=== PATIENT | female | born 1995 | race Asian ===

== ENCOUNTER 2020-03-17 14:16 | Emergency (ER) | payer SELFPAY ==
[2020-03-17 14:47] VITALS: BP 120/79; PULSE 62; RESP 18; TEMP 36.3; O2SAT 100; BMI 27.3
[2020-03-17 15:44] LABS: Basophils # 0.1 10^3/uL (0.0-0.1); Basophils % 0.3 %; Eosinophils # 0.2 10^3/uL (0.0-0.8); Eosinophils % 0.8 %; Hematocrit 43.2 % (37.0-47.0); Hemoglobin 14.3 g/dL (11.5-15.3); Lymphocytes # 1.9 10^3/uL (0.8-4.8); Lymphocytes % 8.3 %; Mean Corpuscular HGB Conc 33.1 g/dL (30.0-36.0); Mean Corpuscular Hemoglobin 31.2 pg (28.0-34.0); Mean Corpuscular Volume 94.1 fL (81-99); Mean Platelet Volume 11.7 fL (7.4-10.4); Monocytes # 1.6 10^3/uL (0.2-0.9); Neutrophils # 18.8 10^3/uL (1.8-7.7); Neutrophils % 83.1 %; Nucleated Red Blood Cells % 0 %; Platelet Count 216 10^3/cmm (130-400); Red Blood Count 4.59 10^6/uL (4.1-5.3); Red Cell Distribution Width 12.1 % (12.1-15.1); White Blood Count 22.7 10^3/uL (4.0-10.0)
[2020-03-17 15:56] LABS: Bilirubin Urine Neg (NEGATIVE); Blood Urine Neg (Negative); Glucose Urine UA Norm (Normal); Ketones Urine 1+ (Negative); Leukocyte Esterase Urine Negative (Negative); Nitrate Urine Negative (Negative); Protein Urine Neg (Negative); Urine Appearance Clear (CLEAR); Urine Color Yellow (Yellow); Urobilinogen Urine Norm (Negative); pH Urine 6.5 (5-7)
[2020-03-17 15:57] LABS: Alanine Aminotransferase 11 U/L (0-33); Albumin Level 4.5 g/dL (3.5-5.2); Alkaline Phosphatase 50 IU/L (35-105); Aspartate Amino Transferase 19 U/L (0-32); Blood Urea Nitrogen 13 mg/dL (6-20); Calcium 9.1 mg/dL (8.5-10.5); Carbon Dioxide 23 mmol/L (22-29); Chloride 102 mmol/L (98-107); Globulin 2.9 g/dL (1.3-4.6); Glucose 93 mg/dL (65-115); Lipase 23 U/L (13-60); Osmolality Calculated 278 mOsm/kg (285-295); Sodium 136 mmol/L (136-145); Total Bilirubin 0.8 mg/dL (0.15-1.2); Total Protein 7.4 g/dL (6.6-8.7)
[2020-03-17 15:59] LABS: HCG, Serum Qual Negative (Negative)
[2020-03-17 16:04] LABS: Add Urine Culture? No; Bacteria Urine 1+; Mucus Urine 1+; Squamous Epithelial Cell Urine 15-25 (0-5)
== END 2020-03-17 16:48 | disposition left against medical advice (07) ==
LOC: ER 14:34
PROVIDERS: Emergency Medicine; Emergency Provider Emergency Medicine
DX: Z53.21 Procedure and treatment not carried out due to patient leaving prior to being seen by health care provider (principal)
CPT/HCPCS: 36415; 80053; 81001; 83690; 84703; 85025; 99281

== ENCOUNTER → 2020-09-18 11:30 | Outpatient (BNVA) | payer OTHER, SELFPAY | PROVIDERS: Visit Provider Nurse Practitioner Family | DX: Z20.828 Contact with and (suspected) exposure to other viral communicable diseases (principal) | CPT/HCPCS: 87635 ==

== ENCOUNTER → 2021-07-04 14:55 | Outpatient (BNVA) | payer OTHER, SELFPAY | PROVIDERS: Visit Provider Nurse Practitioner Family | DX: Z20.822 Contact with and (suspected) exposure to COVID-19 (principal) | CPT/HCPCS: 87635 ==

== ENCOUNTER 2021-10-12 08:40 | Emergency (ER) | payer SELFPAY ==
[2021-10-12 08:46] VITALS: BP 125/80; PULSE 91; RESP 15; TEMP 37.3; O2SAT 100; BMI 31.1
--- NOTE | 2021-10-12 08:59 | ED_ITS ---
HPI - COVID General: Chief Complaint: COVID symptoms Stated Complaint: covid sx: cough, sob, exposure, chilling Time Seen by Provider: 10/12/21 08:42 Triage information: Has fever, cough or shortness of breath . Exposure to COVID + person last 14 days History of Present Illness: HPI Narrative: 26-year-old female began having cough sore throat a little bit short of breath overnight myalgias subjective fever. No vomiting or diarrhea known Covid exposure last week. No vomiting no diarrhea no productive cough. Patient does not have a history of asthma or diabetes or hypertension. MD complaint: has COVID symptoms Prior covid testing: no COVID 19 common symptoms: positive fever(s), chills, cough, non-productive cough, dyspnea, fatigue, body aches, headache(s), throat pain, nasal congestion and nausea; negative loss of sense of smell and/or taste, vomiting or diarrhea COVID 19 other sytmptoms: negative chest pain or requiring oxygen Onset (ago): hour(s) Severity: mild Pertinent comorbid conditions: obesity Treatment prior to arrival: none COVID Results: SARS-CoV-2 RNA (RT-PCR) Not detected (NOT DETECTED) 07/04/21 14:55 07/04/21 Review of Systems Const: Reports: fever(s), chills, body aches and fatigue ENMT: Reports: throat pain and nasal congestion Card: Denies: chest pain, edema, dyspnea on exertion or orthopnea Resp: Reports: dyspnea and non-productive cough GI: Reports: nausea; Denies: vomiting or diarrhea : Denies: flank pain, difficulty voiding, dysuria, urinary frequency or urinary urgency Skin/Breast: Denies: rash or pruritus Neuro: Reports: headache(s) PFS ED PFSH: Social History Smoking and tobacco status: current every day smoker Female Reproductive History: Date of last menstrual period: 09/11/21 Physical Exam Const: COMMON NORMALS: no acute distress GENERAL APPEARANCE: cooperative and comfortable ORIENTATION/CONSCIOUSNESS: Yes awake, Yes oriented to person, Yes oriented to place and Yes oriented to time HENMT: COMMON NORMALS: normocephalic, atraumatic and hearing grossly normal bilaterally HEAD & SCALP: normocephalic and atraumatic Neck/C-Spine: COMMON NORMALS: no JVD Resp: COMMON NORMALS: normal respiratory effort, No retractions, No use of accessory muscles and clear to auscultation bilaterally AUSCULTATION: clear to auscultation bilaterally Cardio: COMMON NORMALS: no JVD, regular rate, regular rhythm and No murmurs present (Cardio) RATE: regular rate RHYTHM: regular rhythm GI: PALPATION: Yes Tenderness to palpation present (GI) and Yes Guarding due to palpation present (GI) Extremity: COMMON NORMALS: normal to inspection, capillary refill normal, no clubbing, cyanosis or edema, no calf tenderness and no pedal edema Neuro: SENSORIUM/ORIENTATION: Yes oriented to person, Yes oriented to place and Yes oriented to time Skin: COMMON NORMALS: no rashes or lesions noted GENERAL SKIN EXAM: no rashes or lesions noted Course Vital Signs: Vital signs: Vital Signs Temperature 99.1 F 10/12/21 08:46 Pulse Rate 91 10/12/21 08:46 Respiratory Rate 15 10/12/21 08:46 Blood Pressure 125/80 10/12/21 08:46 Pulse Oximetry 100 10/12/21 08:46 MDM - COVID MDM Narrative: Medical decision making narrative: Exam normal vital signs stable. Patient does have a low-grade fever. Swab for PCR for Covid. Will contact with results when available at this point there is no other int erventions. If she is Covid positive we can offer monoclonal antibodies based on her BMI. Lab Data: Labs: Lab Results 10/12/21 09:11 Coronavirus 229E ( PCR) Not detected (NOT DETECT) SARS-CoV-2 (PCR) Detected A (NOT DETECT) COVID Results: SARS-CoV-2 RNA (RT-PCR) Not detected (NOT DETECTED) 07/04/21 14:55 07/04/21 Discharge Plan Discharge Patient Disposition: Home Clinical Impression: Suspected 2019-nCoV infection Condition: Stable Prescriptions: No Action No Known Home Medications RF: 0 Discharge Orders: Discharge ED (Routine); Ordered 10/12/21 Ordered By: Jean Slaughter Referrals: Olu Link MD [Primary Care Provider] - Patient Instructions: Opioid Safety Activity Restrictions/Additional Instructions: Recommend that you maintain self quarantine until the results are returned. We will call you when we get the results. If they are positive you would potentially be a candidate for monoclonal antibodies. Health department will also call you if you are positive with further recommendations. Coding Level of Care Code ED Transportation Supervisor for Gerardo Fwd Exam Comprehensive
[2021-10-12 11:11] LABS: Adenovirus Not Detected (NOT DETECT); Chlamydia Pneumoniae Not Detected (NOT DETECT); Coronavirus 229E,HKU1,NL63,OC4 Not Detected (NOT DETECT); Human Metapneumovirus Not Detected (NOT DETECT); Human Rhinovirus/Enterovirus Not Detected (NOT DETECT); Influenza A Not Detected (NOT DETECT); Influenza A H1 Not Detected (NOT DETECT); Influenza A H1-2009 Not Detected (NOT DETECT); Influenza A H3 Not Detected (NOT DETECT); Influenza B Not Detected (NOT DETECT); Mycoplasma Pneumoniae Not Detected (NOT DETECT); Parainfluenza Virus Type 1 Not Detected (NOT DETECT); Parainfluenza Virus Type 2 Not Detected (NOT DETECT); Parainfluenza Virus Type 3 Not Detected (NOT DETECT); Parainfluenza Virus Type 4 Not Detected (NOT DETECT); Respiratory Syncytial Virus A Not Detected (NOT DETECT); Respiratory Syncytial Virus B Not Detected (NOT DETECT); SARS-COV-2 Detected (NOT DETECT)
--- NOTE | 2021-10-15 15:37 | DCPLANNER ---
clinical support manager had message to schedule an outpatient MCA infusion. clinical support manager faxed signed order to centralized scheduling, who will call patient with appointment information.
== END 2021-10-12 09:15 | disposition home or self-care (01) ==
PROVIDERS: Emergency Provider Family Medicine; PCP Family Medicine
DX: U07.1 COVID-19 (principal); F17.210 Nicotine dependence, cigarettes, uncomplicated
CPT/HCPCS: 87635; 99281

== ENCOUNTER 2021-10-16 10:15 | Outpatient (CLI) | payer SELFPAY ==
[2021-10-16 11:00] VITALS: BP 101/71; PULSE 75; RESP 17; TEMP 36.7; O2SAT 97; BMI 33.0
[2021-10-16 12:09] VITALS: BP 111/72; PULSE 62; RESP 17; TEMP 36.7; O2SAT 97
[2021-10-16 12:56] VITALS: BP 125/78; PULSE 66; RESP 17; TEMP 36.7; O2SAT 98
[2021-10-16 12:59] VITALS: BP 125/78; PULSE 66; RESP 17; TEMP 36.7; O2SAT 98
== END 2021-10-16 10:16 | disposition home or self-care (01) ==
LOC: OPS 10:20
PROVIDERS: PCP Family Medicine; Visit Provider Family Medicine
DX: U07.1 COVID-19 (principal)
CPT/HCPCS: 96365

== ENCOUNTER 2023-06-01 05:52 | Observation (INO) | payer MEDICAID, SELFPAY ==
[2023-06-01] VITALS (18 sets, daily range): BP systolic 114–143; BP diastolic 63–111; PULSE 68–98; RESP 16–21; TEMP 36.7–36.9; O2SAT 93–100; BMI 34.9
[2023-06-01 06:04] LABS: Basophils % 0.2 %; Eosinophils # 0.2 10^3/uL (0.0-0.8); Eosinophils % 0.8 %; Hematocrit 35.8 % (37.0-47.0); Hemoglobin 12.3 g/dL (11.5-15.3); Lymphocytes # 2.2 10^3/uL (0.8-4.8); Lymphocytes % 11.1 %; Mean Corpuscular HGB Conc 34.4 g/dL (30.0-36.0); Mean Corpuscular Hemoglobin 31.4 pg (28.0-34.0); Mean Corpuscular Volume 91.3 fl (81-99); Mean Platelet Volume 10.6 fL (7.4-10.4); Monocytes # 1.5 10^3/uL (0.2-0.9); Monocytes % 7.4 %; Neutrophils # 16.01 10^3/uL (1.8-7.7); Nucleated Red Blood Cells % 0 %; Platelet Count 212 10^3/cmm (130-400); Red Blood Count 3.92 10^6/uL (4.1-5.3); Red Cell Distribution Width 12.3 % (12.1-15.1)
[2023-06-01 06:36] LABS: Add Urine Microscopic? YES; Bilirubin Urine Neg (Negative); Blood Urine Neg (Negative); Glucose Urine UA Norm (Normal); Ketones Urine 1+ (Negative); Leukocyte Esterase Urine Negative (Negative); Nitrate Urine Negative (Negative); Protein Urine Trace (Negative); Urine Appearance Hazy (CLEAR); Urine Color Dark Yellow (Yellow); Urobilinogen Urine Norm (Negative); pH Urine 7 (5-7)
[2023-06-01 06:37] LABS: Add Urine Culture? No; Bacteria Urine 1+ /hpf; Mucus Urine 1+ /hpf; RBC Urine 0-4 /hpf (0-2); Squamous Epithelial Cell Urine 15-25 /hpf (0-5); WBC Urine 0-4 /hpf (0-5)
[2023-06-01 06:50] LABS: Alanine Aminotransferase 15 U/L (0-33); Albumin Level 3.9 g/dL (3.5-5.2); Alkaline Phosphatase 46 U/L (35-105); Anion Gap 16.5 (5-19); Aspartate Amino Transferase 15 U/L (0-32); Blood Urea Nitrogen 6 mg/dL (6-20); C Reactive Protein 5.5 mg/L (0.0-4.9); Calcium 8.7 mg/dL (8.5-10.5); Carbon Dioxide 19 mmol/L (22-29); Chloride 104 mmol/L (98-107); Globulin 2.9 g/dL (1.3-4.6); Glomerular Filtration Rate 190.1 mL/min (90-130); Glucose 100 mg/dL (65-115); Lipase 25 U/L (13-60); Osmolality Calculated 280 mOsm/kg (285-295); Potassium 3.5 mmol/L (3.5-5.1); Sodium 136 mmol/L (136-145); Total Bilirubin 0.4 mg/dL (0.15-1.2); Total Protein 6.8 g/dL (6.6-8.7)
--- NOTE | 2023-06-01 06:58 | US_ITS ---
WS: [id number] ULTRASOUND ABDOMEN LIMITED CLINICAL INFORMATION: abd pain COMPARISON: None. FINDINGS: Liver Size: Normal. Craniocaudal length: 15.5 cm. Echogenicity: Normal. Surface nodularity: None. Mass (size and location): None. Bile ducts Intrahepatic ducts: Normal. Common bile duct diameter: 0.4 cm. Gallbladder Normal. Gallstones: None. Gallbladder sludge: None. Gallbladder wall thickening: None. Pericholecystic fluid: None. Sonographic Hughes sign: Absent. Pancreas Normal as visualized. Right kidney: Normal. Hydronephrosis: None. Size: 12.0 cm x 5.2 cm x 5.2 cm. Abdominal aorta and IVC Visualized portions are normal. Ascites: None. IMPRESSION: 1. Normal liver. 2. Normal gallbladder. 3. Normal common bile duct. 4. No hydronephrosis in the RIGHT kidney.
--- NOTE | 2023-06-01 06:58 | US_ITS ---
WS: [id number] ULTRASOUND OB LIMITED TECHNIQUE: Limited ultrasound examination of the fetus. G2, P1 CLINICAL INFORMATION: abd preg - gestational age unknown LMP 01/24/2023 COMPARISON: None. FINDINGS: Closed cervix measuring 4.3 cm Single interuterine gestation. presentation is breech Placental location is posterior. Placenta grade: 0. heart rate 171 BPM. BELLO 12.2 cm Anatomy: BDP: 3.3 cm = 16w2d HC: 12.6 cm = 16w2d AC: 10.2 cm = 16w1d FEMUR LENGTH: 2.1 cm = 16w1d Estimated weight: 147 g; EGA by ultrasound: 16w2d JANNIE by ultrasound: 11/14/2023 IMPRESSION: 1. Single live intrauterine gestation 16 weeks 1 day. 2. Normal cardiac activity. 3. Normal amniotic fluid volume.
[2023-06-01] MEDS: sodium chloride 0.9% 1,000 ML 999 ML IV ×2 (07:03→08:09)
--- NOTE | 2023-06-01 07:09 | ED_ITS ---
HPI - Abdominal Pain General: Chief Complaint: Abdominal Pain Stated Complaint: ABD Pain Time Seen by Provider: 06/01/23 06:03 Source: patient Mode of arrival: ambulatory History of Present Illness: 28-year-old female presents emergency room complaining of abdominal pain that began last night. Comes and goes in waves is rather diffuse. Patient states she is her last normal menstrual period was in February she is uncertain of how far along she is. No previous abdominal surgeries. No vaginal bleeding or discharge. No flank pain. No cough or shortness of breath. No vomiting no diarrhea. No fever. MD elicited complaint: abdominal pain Pertinent past history: other (Currently ) Onset (ago): day(s) (1) Pain Consistency: constant Location: Diffuse Severity: moderate Quality: cramping Exacerbating factors: nothing Relieving factors: nothing Associated Symptoms: Reports GI cramping and nausea; Denies anorexia, belching, bloating, change in bowel habits, change in stool character, chills, coffee ground emesis, constipation, diarrhea, dyspepsia, dysuria, excessive flatus, fever(s), heartburn, hematochezia, hematuria, jennie temesis, fecal incontinence, loose stools, melena, poor appetite, syncope and vomiting Related Data: Date of Last Menstrual Period: 02/10/23 Patient : Yes Review of Systems Const: Denies: fever(s) or chills ENMT: Denies: throat pain, ear or mastoid pain, nasal discharge or nasal congestion Card: Denies: chest pain, palpitations, edema, swelling of feet/ankles or syncope Resp: Denies: dyspnea, productive cough or non-productive cough GI: Reports: abdominal pain, nausea and GI cramping; Denies: vomiting, hematemesis, coffee ground emesis, heartburn, diarrhea, constipation, bloating, belching, excessive flatus, fecal incontinence, change in bowel habits, change in stool character, hematochezia or melena : Denies: dysuria, urinary frequency, urinary urgency or hematuria Skin/Breast: Denies: rash or pruritus PFSH ED PFSH: Social History Smoking and tobacco status: current every day smoker Female Reproductive History: Date of last menstrual period: 02/10/23 : 2 Physical Exam Const: GENERAL APPEARANCE: cooperative and comfortable ORIENTATION/CONS CIOUSNESS: Yes awake, Yes oriented to person, Yes oriented to place and Yes oriented to time HENMT: COMMON NORMALS: normocephalic, atraumatic and hearing grossly normal bilaterally HEAD & SCALP: normocephalic and atraumatic Resp: COMMON NORMALS: normal respiratory effort, No retractions, No use of accessory muscles and clear to auscultation bilaterally AUSCULTATION: clear to auscultation bilaterally Cardio: COMMON NORMALS: regular rate, regular rhythm and No murmurs present (Cardio) RATE: regular rate RHYTHM: regular rhythm GI: COMMON NORMALS: Soft to palpation and No hepatosplenomegaly present AUSCULTATION: Yes normoactive bowel sounds PALPATION: Yes Soft to palpation, No Tenderness to palpation present (GI), No Guarding due to palpation present (GI) and Yes No hepatosplenomegaly present Extremity: COMMON NORMALS: normal to inspection, capillary refill normal, no clubbing, cyanosis or edema, no calf tenderness and no pedal edema Neuro: SENSORIUM/ORIENTATION: Yes oriented to person, Yes oriented to place and Yes oriented to time Skin: COMMON NORMALS: no rashes or lesions noted GENERAL SKIN EXAM: no rashes or lesions noted Course Vital Signs: Vital signs: Vital Signs Temperature 98.5 F 06/01/23 05:55 Pulse Rate 78 06/01/23 10:00 Respiratory Rate 16 06/01/23 13:59 Blood Pressure 132/86 06/01/23 10:00 Pulse Oximetry 98 06/01/23 13:59 Oxygen Delivery Me thod Room Air 06/01/23 05:55 MDM - Abdominal Pain Medical Decision Making Patient monitored for a long period of time in the emergency room when she first arrived she was rolling around on the bed thrashing around moving trying to find a comfortable position after taking her history she seemed more to be hyperemesis cannabinoid although she did complain of some lower abdominal pain initially thought this may just be cramping from her . We gave her IV fluids antiemetics she did not really have rest full resolution of her symptoms after Zofran and fluids we gave her more fluids and offered her promethazine she initially declined. Repeat exam several times through this. She developed more specific right lower quadrant pain over time eventually concerning enough in conjunction with a white count of 20,000 we decided to go ahead and do further imaging and discussed with radiology and with Dr. Montes De Oca who is on-call for LANDSCAPE H[employer]ICULT[employer] INSTRUCTOR. Dr. Montes De Oca recommends CT of the abdomen to further evaluate. Reviewed previous ultrasounds tach and the radiologist not believe we could adequately visualize her appendix via ultrasound. CT did show acute appendicitis she is given Zosyn Dr. Mary was consulted as well as Dr. Tavon Mary is planning to take the patient to the operating room Dr. Montes De Oca will follow for [employer]ANDSC[employer] H[employer]IC[employer] INSTRUCTOR care as needed. Discussed findings with the patient. Medical Records I reviewed the patient's medical records. Lab Data I reviewed the patient's lab results. 06/01/23 06:00 06/01/23 06:00 Labs/Radiology: Radiology Impressions Abdomen/Pelvis CT 06/01/23 11:30 IMPRESSION: 1. Acute appendicitis is demonstrated. No free air or free fluid collections are currently appreciated. 2. THIS REPORT CONTAINS FINDINGS THAT MAY BE CRITICAL TO PATIENT CARE. The findings were verbally communicated via telephone conference at 1:09 PM CDT on 06/01/2023 with JEAN SLAUGHTER. 3. The findings were acknowledged and understood. Laboratory Results WBC 20.0 10^3/uL (4.0-10.0) H 06/01/23 06:00 RBC 3.92 10^6/uL (4.1-5.3) L 06/01/23 06:00 Hgb 12.3 g/dL (11.5-15.3) 06/01/23 06:00 Hct 35.8 % (37.0-47.0) L 06/01/23 06:00 MCV 91.3 fl (81-99) 06/01/23 06:00 MCH 31.4 pg (28.0-34.0) 06/01/23 06:00 MCHC 34.4 g/dL (30.0-36.0) 06/01/23 06:00 RDW 12.3 % (12.1-15.1) 06/01/23 06:00 Plt Count 212 10^3/cmm (130-400) 06/01/23 06:00 MPV 10.6 fL (7.4-10.4) H 06/01/23 06:00 Neut % (Auto) 80.0 % 06/01/23 06:00 Lymph % (Auto) 11.1 % 06/01/23 06:00 Louis[place] % (Auto) 7.4 % 06/01/23 06:00 Eos % (Auto) 0.8 % 06/01/23 06:00 Baso % (Auto) 0.2 % 06/01/23 06:00 Neut # (Auto) 16.01 10^3/uL (1.8-7.7) H 06/01/23 06:00 Lymph # (Auto) 2.2 10^3/uL (0.8-4.8) 06/01/23 06:00 Louis[place] # (Auto) 1.5 10^3/uL (0.2-0.9) H 06/01/23 06:00 Eos # (Auto) 0.2 10^3/uL (0.0-0.8) 06/01/23 06:00 Baso # (Auto) 0.0 10^3/uL (0.0-0.1) 06/01/23 06:00 Nucleated RBC % (auto) 0 % 06/01/23 06:00 Nucleated RBCs # 0.0 /100WBC 06/01/23 06:00 Sodium 136 mmol/L (136-145) 06/01/23 06:00 Potassium 3.5 mmol/L (3.5-5.1) 06/01/23 06:00 Chloride 104 mmol/L (98-107) 06/01/23 06:00 Carbon Dioxide 19 mmol/L (22-29) L 06/01/23 06:00 Anion Gap 16.5 (5-19) 06/01/23 06:00 BUN 6 mg/dL (6-20) 06/01/23 06:00 Creatinine 0.4 mg/dL (0.5-0.9) L 06/01/23 06:00 GFR Calculation 190.1 mL/min (90-130) H 06/01/23 06:00 Glucose 100 mg/dL (65-115) 06/01/23 06:00 Calculated Osmolality 280 mOsm/kg (285-295) L 06/01/23 06:00 Calcium 8.7 mg/dL (8.5-10.5) 06/01/23 06:00 Total Bilirubin 0.4 mg/dL (0.15-1.2) 06/01/23 06:00 AST 15 U/L (0-32) 06/01/23 06:00 ALT 15 U/L (0-33) 06/01/23 06:00 Alkaline Phosphatase 46 U/L (35-105) 06/01/23 06:00 C-Reactive Protein 5.5 mg/L (0.0-4.9) H 06/01/23 06:00 Total Protein 6.8 g/dL (6.6-8.7) 06/01/23 06:00 Albumin 3.9 g/dL (3.5-5.2) 06/01/23 06:00 Globulin 2.9 g/dL (1.3-4.6) 06/01/23 06:00 Lipase 25 U/L (13-60) 06/01/23 06:00 HCG, Qual Cancelled 06/01/23 06:00 Ser , Semi-Qnt 56046.00 mIU/mL 06/01/23 06:00 Urine Color Dark yellow (Yellow) 06/01/23 06:00 Urine Appearance Hazy (CLEAR) A 06/01/23 06:00 Urine pH 7 (5-7) 06/01/23 06:00 Ur Specific [place] 1.020 (1.005-1.030) 06/01/23 06:00 Urine Protein Trace (Negative) 06/01/23 06:00 Urine Glucose (UA) Norm (Normal) 06/01/23 06:00 Urine Ketones 1+ (Negative) H 06/01/23 06:00 Urine Blood Neg (Negative) 06/01/23 06:00 Urine Nitrate Negative (Negative) 06/01/23 06:00 Urine Bilirubin Neg (Negative) 06/01/23 06:00 Urine Urobilinogen Norm mg/dL (Negative) 06/01/23 06:00 Ur Leukocyte Esterase Negative (Negative) 06/01/23 06:00 Urine RBC 0-4 /hpf (0-2) H 06/01/23 06:00 Urine WBC 0-4 /hpf (0-5) H 06/01/23 06:00 Ur Squamous Epith Cells 15-25 /hpf (0-5) H 06/01/23 06:00 Amorphous Sediment Not Reportable 06/01/23 06:00 Urine Bacteria 1+ /hpf (NONE) H 06/01/23 06:00 Urine Mucus 1+ /hpf 06/01/23 06:00 Urine Opiates Screen Negative ng/mL (Negative) 06/01/23 06:00 Ur Barbiturates Screen Negative ng/mL (Negative) 06/01/23 06:00 Ur Phencyclidine Scrn Negative ng/mL (Negative) 06/01/23 06:00 Ur Amphetamines Screen Negative ng/mL (Negative) 06/01/23 06:00 U Benzodiazepines Scrn Negative ng/mL (Negative) 06/01/23 06:00 Urine Cocaine Screen Negative ng/mL (Negative) 06/01/23 06:00 U Marijuana (THC) Screen Positive ng/mL (Negative) H 06/01/23 06:00 Discharge Plan Discharge Patient Disposition: Admitted As Inpatient Admit Provider: Devendra Montes De Oca Clinical Impression: Acute appendicitis affecting , state, incidental Condition: Stable Coding Level of Care Code ED Nutrition Counselor for Gerardo Velasquez
--- NOTE | 2023-06-01 07:35 | PC.PHAR ---
pt states she takes no rx or otc medications
[2023-06-01] MEDS: ondansetron 2 mg/ML SDV 2 mL 4 MG IVP ×2 (08:08→17:14)
[2023-06-01 08:13] LABS: Amphetamines Screen Urine Negative (Negative); Barbiturates Screen Urine Negative (Negative); Benzodiazepines Screen Urine Negative (Negative); Cocaine Screen Urine Negative (Negative); Opiate Screen Urine Negative (Negative); PCP Screen Urine Negative (Negative); THC Screen Urine Positive (Negative)
[2023-06-01] MEDS: promethazine 25 mg/mL SDV 1 mL IM (10:23)
--- NOTE | 2023-06-01 11:30 | CTR_ITS ---
PROCEDURE INFORMATION: Exam: CT Abdomen And Pelvis With Contrast Exam date and time: 06/01/2023 12:38 PM Age: 28 years old Clinical indication: Abdominal pain; Localized; Right lower quadrant (rlq); Additional info: Abd pain.No history of trauma or recent surgery is provided. History of is provided. TECHNIQUE: Imaging protocol: Computed tomography of the abdomen and pelvis with contrast as requested by the ordering clinician. 205image(s) are provided. Radiation optimization: All CT scans at this facility use at least one of these dose optimization techniques: automated exposure control; mA and/or kV adjustment per patient size (includes targeted exams where dose is matched to clinical indication); or iterative reconstruction. Contrast material: OMNI 350; Contrast volume: 80 ml; Contrast route: INTRAVENOUS (IV); Other technique: Axial images are available with sagittal and coronal reconstruction views. Automated dose exposure control is utilized. The DLP is 779.39. REPORTING DATA: Count of CT and Cardiac NM exams in prior 12 months: This patient has received 0 known CTs and 0 known cardiac nuclear medicine studies in the 12 months prior to the current study. COMPARISON: 1. US OB limited [id number] 06/01/2023 7:45 AM report. 2. US gall bladder [id number] 06/01/2023 7:[address] is currently available. RADIATION DOSE METRICS: Total DLP (mGy-cm): 779.39 FINDINGS: Lungs: No lobar consolidation is appreciated. Liver: There appears to be some marginal hepatic steatosis. Gallbladder and bile ducts: The gallbladder is slightly contracted with trace sludge. Pancreas: No pancreatic ductal dilatation or calculus is currently appreciated. Spleen: Unremarkable. Adrenal glands: Unremarkable. Kidneys and ureters: There is homogeneous renal parenchymal enhancement with no interval radiopaque obstructive calculus or hydronephrosis appreciated along the expected course. Stomach and bowel: Some aspects of the colon are undistended. This may also be peristaltic related.There is some stool present limiting mucosal detail evaluation.The bowel gas pattern appears nonobstructive. There is a moderate sliding-type hiatal hernia demonstrated with slight gastroesophageal fold thickening. There is some borderline small bowel loop appearance for example diameter of approximately 2.8 cm of the duodenal jejunal junction. Appendix: The appendix is dilated and fluid-filled with a diameter of approximately 1.1 cm. There is subtle stranding directly adjacent. Intraperitoneal space: No free air or free fluid collections are currently appreciated. Vasculature: No abdominal aortic aneurysmal dilatation or periaortic fluid is appreciated. Lymph nodes: There are subcentimeter predominant para-aortic and mesenteric lymph nodes overall present. This can be seen with previous inflammation or adenitis sequela. Urinary bladder: The bladder is incompletely fluid filled for evaluation which may exagerate the wall thickness. This can also be seen with post inflammation sequela. Reproductive: Gestational changes are present corresponding to the recent ultrasound description. Bones/joints: Osseous alignment is maintained.No displaced fracture or dislocation is appreciated. Soft tissues: No radiopaque foreign body or subcutaneous emphysema is appreciated. There is some slight periumbilical lipomatous eventration with no bowel or fluid currently appreciated. Other findings: There is some motion artifact present. No other significant interval changes are appreciated. CT/CT abdomen pelvis w con* [id number] IMPRESSION: 1. Acute appendicitis is demonstrated. No free air or free fluid collections are currently appreciated. 2. THIS REPORT CONTAINS FINDINGS THAT MAY BE CRITICAL TO PATIENT CARE. The findings were verbally communicated via telephone conference at 1:09 PM CDT on 06/01/2023 with YOSHI SERRANO. 3. The findings were acknowledged and understood.
[2023-06-01] MEDS: iohexol 350 mg/mL 500 mL Btl (per mL) IV (12:40)
--- NOTE | 2023-06-01 13:58 | PM.CONSULT ---
Providers/Reason For Consult Consulting Physician/Specialty*: General surgery Reason for Consult*: Acute appendicitis Primary Care Provider: Olu Link MD History of Present Illness History of Present Illness Dee Dee Ramirez is a 28 year old female who presents to the ED complaining of abdominal pain nausea and vomit. Pain started this morning, was diffuse in nature and has localized to the right lower quadrant during the day. Patient was noted to be in the ED, gestational age is about 16 weeks. Patient underwent an ultrasound of the abdomen as well as a DIRECTOR SPEECH AND HEARING ultrasound without evidence of pathology, but her white count was elevated to 20,000 and therefore ED physician decided to proceed with CT scan of the abdomen and pelvis, which confirmed the diagnosis of acute appendicitis. I was consulted after this finding. Medications/Allergies Home Medications Medication Instructions Recorded Confirmed Last Taken Type No Known Home Medications 06/01/23 06/01/23 Unknown History Allergies Allergy/AdvReac Type Severity Reaction Status Date / Time ibuprofen Allergy ALGY-Rash Verified 06/01/23 07:34 PFSH Acute PFSH: Social History Smoking and tobacco status: current every day smoker Female Reproductive History: Date of last menstrual period: 02/10/23 : 2 Vitals/I&O/Wt Last Vital Signs Temp 98.5 F 06/01/23 05:55 Pulse 78 06/01/23 10:00 Resp 18 06/01/23 10:00 BP 132/86 06/01/23 10:00 Pulse Ox 95 06/01/23 10:00 O2 Del Method Room Air 06/01/23 05:55 05/31/23 06/01/23 06/01/23 22:59 06:59 14:59 Intake Total 1999 Balance 1999 Weight last 48 hrs Weight 185 lb Physical Exam Narrative: General : Patient is well developed , no acute distress, oriented x3 Head : Normal cephalic, a-traumatic. Nose : Mucous membranes are without erythema. Lungs : Equal chest rise bilaterally, no use of accessory muscles, trachea is midline. CV : Rate and rhythm are normal. Abdomen : There is tenderness in the right lower quadrant. A gravid uterus is felt about 4 cm below the umbilicus. Extremities : No edema. Upper extremities are normal bilaterally. Back : non-tender to palpation, no CVA tenderness. Data 06/01/23 06:00 06/01/23 06:00 A&P Assessment and plan (1) Acute appendicitis affecting : Plan after a complete history, physical examination and review of all available clinical data the following is about the assessment. This is a 16-week patient with acute appendicitis, laparoscopic appendectomy is indicated. I have discussed the risks and benefits of the operation with the patient, including the risks of miscarriage, uterine bleeding, increased risk for hernia formation, need to conversion to an open operation, bleeding, infection, damage to surrounding structures. The patient acknowledges the risks and wishes to proceed with the operation. I have also requested our ER team to start the patient on antibiotics. Patient will be booked for the OR today, as soon as there is available time. Coding Level of Care Code 15986 Diagnoses Acute appendicitis affecting O99.619; K35.80
[2023-06-01] MEDS: morphine 4 mg/mL SDV 1 mL IVP (13:59)
[2023-06-01] MEDS: piperacillin-tazobactam 4.5 GM in sodium chloride 0.9% (plus) 50 ML IV (14:03)
--- NOTE | 2023-06-01 14:54 | PC.NURSE ---
pt left for surgery. report given to surgical team at bedside.
[2023-06-01] MEDS: BUPivacaine 0.25% INJ 10 mL INJECTION (16:12)
[2023-06-01] MEDS: lidocaine-epi 1% 20 mL INJ 10 ML INJECTION (16:12)
--- NOTE | 2023-06-01 16:38 | P.ANESASSM_ITS ---
Pre-Anesthetic Assessment Height/Weight: Height 1.55 m Weight 83.915 kg Temp Pulse Resp BP Pulse Ox O2 Del Method 98.5 F 68 18 119/63 97 Room Air 06/01/23 05:55 06/01/23 14:30 06/01/23 14:30 06/01/23 14:30 06/01/23 14:30 06/01/23 05:55 Operation Date: 06/01/23 15:30 Proposed Procedures p Laparoscopic Appendectomy(Not Applicable) - Nuno Mary MD Familial anesthetic complications: none Was Beta Jarett taken within 24 hours: N/A Was Clonidine taken within 24 hours: N/A Last intake: Intake Last Liquid Date 05/31/23 Last Liquid Time 22:30 Last Solid Date 05/31/23 Last Solid Time 21:00 Social Tobacco and No alcohol Exam alert, oriented x 3 and regular rate & rhythm Airway Submandibular: within normal limits Cervical ROM: within normal limits Mallampati: Class II Dentition: false (upper) Pulmonary Chronic Obstructive Pulmonary Disease GI Acute appe Metabolic Morbid Obesity Anesthetic Plan ASA status: 2E Anesthesia: General (RSI) Medications/Allergies Home Medications Medication Instructions Recorded Confirmed Last Taken Type No Known Home Medications 06/01/23 06/01/23 Unknown History Allergies Allergy/AdvReac Type Severity Reaction Status Date / Time ibuprofen Allergy ALGY-Rash Verified 06/01/23 07:34 [facility] Anesthesia Social History Smoking and tobacco status: current every day smoker Female Reproductive History Date of last menstrual period: 02/10/23 : 2 Data Anesthesia 06/01/23 06:00 06/01/23 06:00 Short CBC 06/01/23 Range/Units 06:00 WBC 20.0 H (4.0-10.0) 10^3/uL Hgb 12.3 (11.5-15.3) g/dL Hct 35.8 L (37.0-47.0) % MCV 91.3 (81-99) fl Plt Count 212 (130-400) 10^3/cmm Neut % (Auto) 80.0 % Neut # (Auto) 16.01 H (1.8-7.7) 10^3/uL BMP 06/01/23 06:00 Sodium 136 Potassium 3.5 Chloride 104 Carbon Dioxide 19 L BUN 6 Creatinine 0.4 L Glucose 100 Calcium 8.7 Liver Function 06/01/23 Range/Units 06:00 Total Bilirubin 0.4 (0.15-1.2) mg/dL AST 15 (0-32) U/L ALT 15 (0-33) U/L Alkaline Phosphatase 46 (35-105) U/L Albumin 3.9 (3.5-5.2) g/dL Urine 06/01/23 Range/Units 06:00 Urine Color Dark yellow (Yellow) Urine Appearance Hazy A (CLEAR) Urine pH 7 (5-7) Ur Specific [place] 1.020 (1.005-1.030) Urine Protein Trace (Negative) Urine Glucose (UA) Norm (Normal) Urine Ketones 1+ H (Negative) Urine Nitrate Negative (Negative) Urine Bilirubin Neg (Negative) Ur Leukocyte Esterase Negative (Negative) Urine RBC 0-4 H (0-2) /hpf Urine WBC 0-4 H (0-5) /hpf Coags 06/01/23 06:00 C-Reactive Protein 5.5 H Cardiac Studies: No Data to Display
--- NOTE | 2023-06-01 17:20 | PM.OP ---
Operative Report Date of procedure: June 01, 2023 Pre-op diagnosis: Acute appendicitis Post-op diagnosis: Same Procedure done: Laparoscopic appendectomy Specimens removed/disposition: Appendix Surgeon: Nuno Mary MD Estimated blood loss: 5 cc Complications: None Findings: Enlarged uterus, up to 4 cm below the level of the umbilicus, inflamed appendix with minimal inflammatory fluid around. Corpus luteum on the right side near the appendix. Brief History: This is a 28-year-old female 16-week , presents with abdominal pain to the ED. After extensive work-up diagnosis of acute appendicitis was made. I was consulted for this. I discussed with the patient the possibility of laparoscopic appendectomy, all risk and benefits of the procedure were discussed as documented in my consult note. Patient was taken to the OR for the procedure. Procedure: Patient was taken to the OR, placed in the supine position. Anesthesia given without complications. The abdomen was prepped and draped in the usual sterile fashion. Timeout was conducted. A 1 cm infraumbilical incision was made, the incision was carried down to the level of the fascia. The fascia was opened sharply, taking careful consideration of injuring the intra-abdominal contents. A Whalen trocar was placed and fixed to the fascia with 0 Vicryl. Additional ports were placed on the left lower quadrant and 5 cm below the umbilicus. The appendix was identified on the right lower quadrant near to the corpus luteum. The appendix was elevated, Enseal was used to take down the mesoappendix to the base of the appendix. A 45 mm blue load Endo L[facility]IS was then used to transect the appendix at the base. The specimen was removed through the umbilical port. Ray-tech was inserted into the abdomen to absorb minimal amount of inflammatory fluid around the appendiceal base. The Ray-tech was subsequently removed. We did a complete laparoscopy to identify any other causes of abdominal pain, no evidence of any other pathology was noticed. The staple line looked fine., There was no evidence of bleeding around the area of transection. The umbilical port trocar site was then closed under direct visualization using a suture passer with a 0 Vicryl. The infraumbilical trocar was then removed under direct visualization, pneumoperitoneum was evacuated through the left lower quadrant trocar which was since removed. The wounds were closed using 4-0 Monocryl for the skin. Dermabond was applied. The patient tolerated well the procedure and was transferred to the PACU in stable condition.
--- NOTE | 2023-06-01 17:29 | SUR.PHASEI ---
1729 Fausto from OB came from [facility] to check heart tones. She reported heart tones in the 120s.
--- NOTE | 2023-06-01 17:48 | ANE.PACU2 ---
Inpatient post-anesthesia follow up: Airway intact: Yes Vital signs: Temperature 98.0 F Pulse Rate 91 Respiratory Rate 17 Blood Pressure 139/77 Pulse Oximetry 100 Oxygen Delivery Me thod Room Air Oxygen Flow Rate 6 Fraction of Inspir ed Oxygen Hydration adequate: Yes Nausea and vomiting: No Pain level: 3 Mental status: Baseline
[2023-06-01] MEDS: acetaminophen 325 mg Tablet PO (18:09)
== END 2023-06-01 18:20 | disposition home or self-care (01) ==
LOC: ER 07:13 → OBGYN 14:18
PROVIDERS: Emergency Medicine; Surgery; Admitting Provider Obstetrics & Gynecology; Emergency Provider Family Medicine; PCP Family Medicine; Visit Provider Obstetrics & Gynecology
PROC: 0DTJ4ZZ Resection of Appendix, Percutaneous Endoscopic Approach (ICD-10-PCS; CPT 44970; principal; 2023-06-01 15:30)
DX: O99.612 Diseases of the digestive system complicating pregnancy, second trimester (principal); K35.80 Unspecified acute appendicitis; O99.512 Diseases of the respiratory system complicating pregnancy, second trimester; J44.9 Chronic obstructive pulmonary disease, unspecified; O99.332 Smoking (tobacco) complicating pregnancy, second trimester; F17.200 Nicotine dependence, unspecified, uncomplicated; Z3A.16 16 weeks gestation of pregnancy
CPT/HCPCS: 44970; 74177; 76705; 76815; 80053; 80306; 81001; 83690; 84702; 85025; 86140; 88304; 96365; 96366; 96367; 96372; 96375; 99285; G0378; J1200; J2270; J2371; J2405; J2543; J2550; J2704; J2710; J3010; J3490; J7030; Q9967

== ENCOUNTER 2023-11-04 09:39 | Inpatient (IN) | payer MEDICAID, SELFPAY ==
[2023-11-04] VITALS (38 sets, daily range): BP systolic 98–172; BP diastolic 56–96; PULSE 71–109; RESP 15–18; TEMP 36.2–37.4; O2SAT 97–100; BMI 37.7
[2023-11-04] MEDS: lactated ringers 1,000 ML 999 ML IV ×2 (10:11→11:28)
[2023-11-04] MEDS: ampicillin 2,000 MG in sodium chloride 0.9% (plus) 50 ML 100 MG IV (10:12)
[2023-11-04 10:37] LABS: Basophils % 0.2 %; Eosinophils % 0.3 %; Hematocrit 33.9 % (36-47); Lymphocytes % 15.7 %; Mean Corpuscular HGB Conc 34.5 g/dL (30-55); Mean Corpuscular Hemoglobin 31.7 pg (27-33); Mean Corpuscular Volume 91.9 fl (85-98); Mean Platelet Volume 12.7 fL (7.4-10.4); Monocytes # 0.7 10^3/uL (0.2-0.9); Monocytes % 5.1 %; Neutrophils # 10.05 10^3/uL (1.8-7.7); Neutrophils % 78.3 %; Nucleated Red Blood Cells % 0 %; Platelet Count 215 10^3/cmm (157-399); Red Blood Count 3.69 10^6/uL (3.85-5.65); Red Cell Distribution Width 12.3 % (12.1-15.1); White Blood Count 12.83 10^3/uL (3.29-11.43)
[2023-11-04] MEDS: ROPivacaine syringe 100 MG/50 ML SYRINGE 10 MG EPIDURAL (11:44)
--- NOTE | 2023-11-04 14:22 | P.ANESASSM_ITS ---
Pre-Anesthetic Assessment Height/Weight: Height 1.52 m Weight 87.543 kg O2 Del Method Room Air 11/04/23 11:04 Familial anesthetic complications: none Was Beta Jarett taken within 24 hours: N/A Was Clonidine taken within 24 hours: N/A Social Tobacco and No alcohol Exam alert, oriented x 3 and regular rate & rhythm Airway Submandibular: within normal limits Cervical ROM: within normal limits Mallampati: Class II Dentition: false Metabolic Morbid Obesity Anesthetic Plan ASA status: 2 Anesthesia: Regional (specify below) (Labor epidural) Medications/Allergies Home Medications Medication Instructions Recorded Confirmed Last Taken Type acetaminophen 500 mg tablet 500 mg PO Q6H PRN 06/16/23 06/16/23 Unknown History (Tylenol Extra Strength) Allergies Allergy/AdvReac Type Severity Reaction Status Date / Time ibuprofen Allergy ALGY-Rash Verified 06/16/23 07:58 Current Medications Generic Name Dose Route Start Last Admin Trade Name Freq PRN Reason Stop Dose Admin Lactated Ringer's 1,000 mls @ 999 mls/hr 11/04/23 09:12 11/04/23 11:28 Lactated Ringers IV 999 mls/hr .Q1H1M PRN Administration See label comments Ropivacaine 100 mg in 50 mls @ 10 mls/hr 11/04/23 09:15 11/04/23 11:44 Naropin Syringe EPIDURAL 10 mls/hr .Q5H MARBELLA Administration PFSH Anesthesia Surgical History (Updated 06/16/23 @ 08:14 by Nuno Mary MD) History of laparoscopic appendectomy 06/01/23 Dr. Mary Family History Denies family history of Cervical cancer Colon cancer Ovarian cancer Diabetes Breast cancer Hypertension Uterine cancer Stroke Social History Smoking and tobacco/nicotine status: current every day tobacco/nicotine user Female Reproductive History : 2 Data Anesthesia 11/04/23 09:55 Short CBC 11/04/23 Range/Units 09:55 WBC 12.83 H (3.29-11.43) 10^3/uL Hgb 11.70 (11.27-16.99) g/dL Hct 33.9 L (36-47) % MCV 91.9 (85-98) fl Plt Count 215 (157-399) 10^3/cmm Neut % (Auto) 78.3 % Neut # (Auto) 10.05 H (1.8-7.7) 10^3/uL Blood Bank 11/04/23 09:55 Blood Type B Positive Rho(D) Type Rh positive Antibody Screen Negative Cardiac Studies: 2 No Data to Display Anesthesia Procedures Epidural Time Out Performed: Yes Consents Signed: Procedure Consent Consent: requested by attending/covering physician, from patient, risks and benefits reviewed and patient agrees to proceed Lumbar Level: L3-L4 Epidural position: sitting Epidural procedure: sterile prep of area, 1% lidocaine to numb the area, 18 g needle, neg for paresthesia, test dose given, 1.5% xylocaine 1:200k epi, placed PCEA, no systemic response, sterile dressing applied and 0.2% Ropiavacaine @ mls/hr (10) Additional Comments: MANAV at 6cm, cath at 11cm, bolused 5mls of 2% lido PF
[2023-11-04] MEDS: ampicillin 1,000 MG in sodium chloride 0.9% (plus) 50 ML 100 MG IV (14:33)
[2023-11-04 16:21] LABS: Amphetamines Screen Urine Negative (Negative); Barbiturates Screen Urine Negative (Negative); Benzodiazepines Screen Urine Negative (Negative); Cocaine Screen Urine Negative (Negative); Opiate Screen Urine Negative (Negative); PCP Screen Urine Negative (Negative); THC Screen Urine Positive (Negative)
--- NOTE | 2023-11-04 16:46 | PM.OBGYHP ---
Providers/Chief Complaint Primary Care Provider: Olu Link MD Chief Complaint: Abdominal pain HPI [employer] History of Present Illness Dee Dee Ramirez is a 28 year old G2, P1 female that presents at 39 weeks in active labor. The patient was initially lillian every 3 to 6 minutes. Initial examination demonstrated 4 to 5 cm dilation. Patient continued to contract well on her own throughout the day. Patient was GBS positive and was started on prophylactic ampicillin. The patient continued to progress until she was 8 to 9 cm and had a bulging bag. At this time the patient had received 2 doses of ampicillin so artificial rupture membranes was performed. Patient continued to progress to completion. Present Details : 2 Para: 1 Labs Rubella: Immune RPR: Negative GBS: Positive Review of Systems Const: Denies: fever(s), chills, change in weight or fatigue Eyes: Denies: change in vision ENMT: Denies: odynophagia Card: Denies: chest pain Resp: Denies: dyspnea GI: Denies: abdominal pain, dysphagia or hematochezia : Denies: dysuria Skin/Breast: Denies: rash, nipple discharge or breast mass Neuro: Denies: seizure-like activity Jose/Lymph: Denies: easy bruising Medications/Allergies Home Medications Medication Instructions Recorded Confirmed Last Taken Type acetaminophen 500 mg tablet 500 mg PO Q6H PRN 06/16/23 06/16/23 Unknown History (Tylenol Extra Strength) Allergies Allergy/AdvReac Type Severity Reaction Status Date / Time ibuprofen Allergy ALGY-Rash Verified 06/16/23 07:58 PFS [employer] PFSH: Surgical History (Updated 06/16/23 @ 08:14 by Nuno Mary MD) History of laparoscopic appendectomy 06/01/23 Dr. Mary Family History Denies family history of Cervical cancer Colon cancer Ovarian cancer Diabetes Breast cancer Hypertension Uterine cancer Stroke Social History Smoking and tobacco/nicotine status: current every day tobacco/nicotine user Vitals/I&O/Wt Last Vital Signs O2 Del Method Room Air 11/04/23 11:04 11/04/23 11/04/23 11/04/23 06:59 14:59 22:59 Intake Total 1000 / 1000 Balance 1000 / 1000 Weight last 48 hrs Weight 87.543 kg Physical Exam Narrative: General : Patient is well developed , no acute distress, oriented x3 Head : Normal cephalic, a-traumatic. Nose : Mucous membranes are without erythema. Lungs : Equal chest rise bilaterally, no use of accessory muscles, trachea is midline. CV : Rate and rhythm are normal. Abdomen : Gravid uterus. Extremities : No edema. Upper extremities are normal bilaterally. Back : non-tender to palpation, no CVA tenderness. Data 11/04/23 09:55 Results Labs OB ([facility]): Obstetrics US 06/01/23 Blood Type B Positive 11/04/23 Antibody Screen Negative 11/04/23 Hct 33.9 % (36-47) L 11/04/23 Hgb 11.70 g/dL (11.27-16.99) 11/04/23 Rho(D) Type Rh positive 11/04/23 Plt Count 215 10^3/cmm (157-399) 11/04/23 Ser , Semi-Qnt 89435.00 mIU/mL 06/01/23 HCG, Qual Negative (Negative) 03/17/20 Urine Opiates Screen Negative ng/mL (Negative) 11/04/23 Ur Barbiturates Screen Negative ng/mL (Negative) 11/04/23 Ur Phencyclidine Scrn Negative ng/mL (Negative) 11/04/23 Ur Amphetamines Screen Negative ng/mL (Negative) 11/04/23 U Benzodiazepines Scrn Negative ng/mL (Negative) 11/04/23 Urine Cocaine Screen Negative ng/mL (Negative) 11/04/23 U Marijuana (THC) Screen Positive ng/mL (Negative) H 11/04/23 A&P Assessment and plan (1) Term : (2) 39 weeks gestation of : (3) Active labor at term: Continue with active labor management. Attestations Medical Necessity Statement*: Patient admitted for labor. Anticipate at least 1 midnight stay. Coding Level of Care Code Acute Code for Chg Fwd Diagnoses Term Z34.90 39 weeks gestation of Z3A.39 Active labor at term
--- NOTE | 2023-11-04 16:53 | PM.DELIVERY ---
Delivery Note: Date of delivery: November 04, 2023 Pre-delivery diagnoses: Term intrauterine Post-delivery diagnoses: Same, viable male Procedure: Spontaneous vaginal delivery Delivering Physician: Dr. Doron Galloway Estimated blood loss (mL): 150 Pre-Delivery Course: Patient presented in labor and progressed as expected. Delivery: On arrival the patient was completely dilated. The patient was placed into the normal lithotomy position and started pushing with contractions. After pushing with several correct directions patient delivered the 's head followed by the anterior shoulder. The infant was then completely delivered and placed onto mother's abdomen. After appropriate delay the cord was clamped and cut. Placenta was delivered soon after and Pitocin was started. Review of the perineum showed minor first-degree periurethral tear that was not actively bleeding and did not require repair. The perineum itself was intact. Uterus was firm and bleeding was controlled. Post-Delivery Status: Stable History History History 2 Term 2 0 Miscarriages/Ectopic 0 Living Children 2 A&P Assessment and plan (1) Vaginal delivery: Routine care Coding Level of Care Code Acute Code for Chg Fwd Diagnoses Vaginal delivery O80
[2023-11-04] MEDS: lanolin oint 7 gm 1 APPLIC TOPICAL (20:00)
[2023-11-04] MEDS: docusate sodium 100 mg Capsule PO (20:01)
[2023-11-04] MEDS: acetaminophen 325 mg Tablet 650 MG PO (20:01)
[2023-11-04] MEDS: benzocaine-menthol 78 gm Canister 1 SPRAY TOPICAL (20:01)
[2023-11-05 00:14] VITALS: BP 133/86; PULSE 70; O2SAT 99
[2023-11-05 04:00] VITALS: BP 126/85; PULSE 83; RESP 18; TEMP 36.6; O2SAT 98
[2023-11-05 05:35] LABS: Hematocrit 32.8 % (36-47); Mean Corpuscular HGB Conc 34.5 g/dL (30-55); Mean Corpuscular Hemoglobin 31.8 pg (27-33); Mean Corpuscular Volume 92.4 fl (85-98); Platelet Count 197 10^3/cmm (157-399); Red Blood Count 3.55 10^6/uL (3.85-5.65); Red Cell Distribution Width 12.5 % (12.1-15.1); White Blood Count 13.14 10^3/uL (3.29-11.43)
--- NOTE | 2023-11-05 06:21 | P.DS_ITS ---
Discharge Providers Date of Admission: 11/04/23 09:39 Date of Discharge: November 05, 2023 Attending Provider at Admission: Dominick Galloway MD Attending Provider at Discharge: Dominick Galloway MD Primary Care Provider: Olu Link MD Diagnoses at Discharge Discharge Diagnosis (1) Vaginal delivery: Details from hospital stay: This is a 28-year-old that presented at 39 weeks in active labor. She had unremarkable labor and delivered a viable infant male vaginally without difficulty. Patient had no complications. care was un remarkable. Status: Acute Reason for Visit Reason for Visit: Abdominal pain Physical Exam Narrative: General : Patient is well developed , no acute distress, oriented x3 Head : Normal cephalic, a-traumatic. Nose : Mucous membranes are without erythema. Lungs : Equal chest rise bilaterally, no use of accessory muscles, trachea is midline. CV : Rate and rhythm are normal. Abdomen : Uterus firm below umbilicus. Extremities : No edema. Upper extremities are normal bilaterally. Back : non-tender to palpation, no CVA tenderness. Discharge Data Studies Completed and Pending Laboratory Results WBC 13.14 10^3/uL (3.29-11.43) H 11/05/23 05:25 RBC 3.55 10^6/uL (3.85-5.65) L 11/05/23 05:25 Hgb 11.30 g/dL (11.27-16.99) 11/05/23 05:25 Hct 32.8 % (36-47) L 11/05/23 05:25 MCV 92.4 fl (85-98) 11/05/23 05:25 MCH 31.8 pg (27-33) 11/05/23 05:25 MCHC 34.5 g/dL (30-55) 11/05/23 05:25 RDW 12.5 % (12.1-15.1) 11/05/23 05:25 Plt Count 197 10^3/cmm (157-399) 11/05/23 05:25 MPV 12.0 fL (7.4-10.4) H 11/05/23 05:25 Neut % (Auto) 78.3 % 11/04/23 09:55 Lymph % (Auto) 15.7 % 11/04/23 09:55 [place] % (Auto) 5.1 % 11/04/23 09:55 Eos % (Auto) 0.3 % 11/04/23 09:55 Baso % (Auto) 0.2 % 11/04/23 09:55 Neut # (Auto) 10.05 10^3/uL (1.8-7.7) H 11/04/23 09:55 Lymph # (Auto) 2.0 10^3/uL (0.8-4.8) 11/04/23 09:55 [place] # (Auto) 0.7 10^3/uL (0.2-0.9) 11/04/23 09:55 Eos # (Auto) 0.0 10^3/uL (0.0-0.8) 11/04/23 09:55 Baso # (Auto) 0.0 10^3/uL (0.0-0.1) 11/04/23 09:55 Nucleated RBC % (auto) 0 % 11/04/23 09:55 Nucleated RBCs # 0.0 /100WBC 11/04/23 09:55 Urine Opiates Screen Negative ng/mL (Negative) 11/04/23 15:55 Ur Barbiturates Screen Negative ng/mL (Negative) 11/04/23 15:55 Ur Phencyclidine Scrn Negative ng/mL (Negative) 11/04/23 15:55 Ur Amphetamines Screen Negative ng/mL (Negative) 11/04/23 15:55 U Benzodiazepines Scrn Negative ng/mL (Negative) 11/04/23 15:55 Urine Cocaine Screen Negative ng/mL (Negative) 11/04/23 15:55 U Marijuana (THC) Screen Positive ng/mL (Negative) H 11/04/23 15:55 Blood Type B Positive 11/04/23 09:55 Rho(D) Type Rh positive 11/04/23 09:55 Antibody Screen Negative 11/04/23 09:55 Vitals Last Vital Signs Temp 97.8 F 11/05/23 04:00 Pulse 83 11/05/23 04:00 Resp 18 11/05/23 04:00 BP 126/85 11/05/23 04:00 Pulse Ox 98 11/05/23 04:00 O2 Del Method Room Air 11/05/23 04:00 Discharge Plan Discharge Patient Disposition: Home Condition: Stable Prescriptions: Continued acetaminophen [Tylenol Extra Strength] 500 mg tablet 500 mg PO Q6H PRN Discharge Orders: Discharge Order (Routine); Ordered 11/05/23 Ordered By: Dominick Galloway Referrals: Dominick Galloway MD [Physician] - 12/18/23 10:15 am Patient Instructions: Depression (GEN), Bleeding (GEN), OB Food/Drug Interaction Guide, OB Care at Home, Opioid Safety, OB Home Care, OB Vaginal Deliveries, Abnormal Bleeding Discharge Attestations Time Spent in Discharge Care*: less than 30 min Quality Metrics Clinical Quality Measures [ No reported AMI, CVA or VTE this stay] Coding Level of Care Code Acute Code for Chg Fwd Diagnoses Vaginal delivery O80
--- NOTE | 2023-11-05 07:07 | ANE.PACU2 ---
Inpatient post-anesthesia follow up: Airway intact: Yes Vital signs: Temperature 97.8 F Pulse Rate 83 Respiratory Rate 18 Blood Pressure 126/85 Pulse Oximetry 98 Oxygen Delivery Me thod Room Air Oxygen Flow Rate Fraction of Inspir ed Oxygen Hydration adequate: Yes Nausea and vomiting: No Pain level: 2 Mental status: Baseline Epidural Start/End: Epidural Start Date: 11/04/23 Epidural Start Time: 11:30 Epidural End Date: 11/04/23 Epidural End Time: 16:53
[2023-11-05 09:30] VITALS: BP 126/79; PULSE 82; RESP 16; TEMP 36.7
[2023-11-05] MEDS: prenatal vitamin Capsule 1 CAP PO (09:30)
[2023-11-05] MEDS: docusate sodium 100 mg Capsule PO (09:30)
[2023-11-05 19:00] VITALS: BP 125/87; PULSE 69; RESP 16; TEMP 36.7
== END 2023-11-05 19:05 | disposition home or self-care (01) | DRG 807 ==
LOC: OPOB 16:52 → OBGYN 16:52
PROVIDERS: Admitting Provider Family Medicine; PCP Family Medicine; Visit Provider Family Medicine
DX: O99.824 Streptococcus B carrier state complicating childbirth (principal); Z37.0 Single live birth; O99.334 Smoking (tobacco) complicating childbirth; F17.200 Nicotine dependence, unspecified, uncomplicated; O70.0 First degree perineal laceration during delivery; Z3A.39 39 weeks gestation of pregnancy
CPT/HCPCS: 36415; 59025; 59409; 80306; 85025; 85027; 86850; 86900; 99211; J0290; J2795; J7120

== ENCOUNTER → 2024-02-15 14:49 | Outpatient (BNVA) | payer MEDICAID, SELFPAY | PROVIDERS: PCP Family Medicine; Visit Provider Dermatology | DX: A63.0 Anogenital (venereal) warts (principal); L81.3 Cafe au lait spots | CPT/HCPCS: 99204 ==